=== PATIENT | male | born 1980 | race Two or more races ===

== ENCOUNTER 2023-08-07 19:45 | Inpatient (IN) | payer OTHER ==
[2023-08-07 11:07] VITALS: BMI 22.4
[2023-08-07] MEDS ORDERED: cloNIDine HCL 0.1 MG TABLET PO ONE (21:00)
[2023-08-07] MEDS ORDERED: DICYCLOMINE HCL 10 MG CAPSULE PO PRN (22:14)
[2023-08-07] MEDS ORDERED: guaiFENesin 600 MG TABLET.ER (FP) PO PRN (22:14)
[2023-08-07] MEDS ORDERED: BISMUTH SUBSALICYLATE 524 MG/30 ML PO PRN (22:14)
[2023-08-07] MEDS ORDERED: NALOXONE HCL 0.4 MG/ML VIAL IM PRN (22:14)
[2023-08-07] MEDS ORDERED: LOPERAMIDE HCL 2 MG CAPSULE PO PRN (22:14)
[2023-08-07] MEDS ORDERED: ONDANSETRON *ODT* 4 MG TABLET SL PRN (22:14)
[2023-08-07] MEDS ORDERED: MAGNESIUM HYDROX 2400MG/30ML ORAL SUSPENSION 30 ML CUP PO PRN (22:14)
[2023-08-07] MEDS ORDERED: NALOXONE HCL (KLOXXADO) 8 MG SPRAY NS PRN (22:14)
[2023-08-07] MEDS ORDERED: P-EPHED 60MG/TRIPROLIDI 2.5MG TABLET PO PRN (22:14)
[2023-08-07] MEDS ORDERED: NICOTINE POLACRILEX 2 MG GUM BUC PRN (22:14)
[2023-08-07] MEDS ORDERED: hydrOXYzine PAMOATE 25 MG CAPSULE (FP) PO PRN (22:14)
[2023-08-07] MEDS ORDERED: ACETAMINOPHEN 325 MG TABLET (FP) PO PRN (22:14)
[2023-08-07] MEDS ORDERED: BENZOCAINE/MENTHOL (CHLORASEPTIC ) LOZENGE MM PRN (22:14)
[2023-08-07] MEDS ORDERED: MAG HYDROX/AL HYDROX/SIMETH 30 ML UNIT-DOSE CUP PO PRN (22:14)
[2023-08-07] MEDS ORDERED: BENZONATATE 200 MG CAPSULE PO PRN (22:14)
[2023-08-07] MEDS ORDERED: POLYETHYLENE GLYCOL (HEALTHYLAX) 3350 17 GM PACKET PO PRN (22:14)
[2023-08-08] MEDS: PRENATAL VITAMINS W/ FOLIC ACID TABLET (FP) PO SCH (10:54)
[2023-08-08] MEDS: LISINOPRIL 10 MG TABLET PO SCH (12:27)
[2023-08-08] MEDS ORDERED: methaDONE HCL 10 MG TABLET PO ONE (13:00)
[2023-08-08 18:08] LABS: EPI CELLS 4 /uL (0-25.1); HYALINE CASTS 1 /uL (0-3.1); PH,URINE 6.5 (5.0-8.0); URINE APPEARANCE TURBID; URINE BACTERIA 3 /uL (0-1359); URINE BILIRUBIN NEGATIVE (NEGATIVE); URINE COLOR YELLOW; URINE GLUCOSE (UA) 2+ (NEGATIVE); URINE KETONE NEGATIVE (NEGATIVE); URINE LEUK ESTERASE NEGATIVE (NEGATIVE); URINE NITRITE NEGATIVE (NEGATIVE); URINE PROTEIN 4+ (NEGATIVE); URINE RBC 9 /uL (0-23.9); URINE UROBILINOGEN 0.2 mg/dL (0.2-1.0); URINE WBC 8 /uL (0-25.8)
[2023-08-08] MEDS ORDERED: THIAMINE HCL 100 MG TABLET (FP) PO SCH (22:00)
[2023-08-08] MEDS ORDERED: MELATONIN 5 MG TABLETS PO SCH (22:00)
[2023-08-08] MEDS: cloNIDine HCL 0.1 MG TABLET PO PRN (22:42)
[2023-08-09] MEDS: cloNIDine HCL 0.1 MG TABLET PO PRN (06:53)
[2023-08-09 09:43] VITALS: TEMP 98.4
[2023-08-09] MEDS: LISINOPRIL 10 MG TABLET PO SCH (10:59)
[2023-08-09] MEDS: PRENATAL VITAMINS W/ FOLIC ACID TABLET (FP) PO SCH (11:00)
[2023-08-09] MEDS ORDERED: methaDONE HCL 40 MG DISPERSABLE TABLET PO ONE (11:44)
[2023-08-09 13:24] VITALS: BP 162/100; PULSE 89; RESP 16
[2023-08-10] MEDS ORDERED: methaDONE HCL 40 MG DISPERSABLE TABLET PO SCH (06:00)
[2023-08-10] MEDS ORDERED: LISINOPRIL 20 MG TABLET PO SCH (10:00)
== END 2023-08-09 14:07 | disposition home or self-care (01) | DRG 773 ==
LOC: YASAS 19:45 → Y6N 21:59
PROVIDERS: ADMIT Allergy & Immunology; ATTEND Surgery
PROC: HZ2ZZZZ Detoxification Services for Substance Abuse Treatment (ICD-10-PCS; principal; 2023-08-07)
DX: F10.20 Alcohol dependence, uncomplicated (principal); F11.20 Opioid dependence, uncomplicated; F14.20 Cocaine dependence, uncomplicated; F17.210 Nicotine dependence, cigarettes, uncomplicated; I12.0 Hypertensive chronic kidney disease with stage 5 chronic kidney disease or end stage renal disease; N18.5 Chronic kidney disease, stage 5
CPT/HCPCS: 36415; 73590-TC-RT-FY; 80053; 81003; 85025; 85651; 86140; 87040; 87635